=== PATIENT | female | born 1990 | race Caucasian/White ===

== ENCOUNTER 2016-12-02 13:03 | Emergency (ER) | payer OTHER ==
[~2016-12-02] VITALS: Ht 167.6 cm; Wt 68.3 kg
[~2016-12-02 13:03] MED LIST: ACETAMINOPHEN500 MG PO; AUGMENTIN875 MG PO; CIPRO500 M1 PO; ENDOCET 5-3251 EACH PO; IBUPROFEN800 MG PO; KEFLEX500 MG PO; LIDOCAINE20 MG/1 M5 PO; Levaquin PO; MOTRIN600 MG PO; MOTRIN800 MG PO; Macrobid PO; Motrin PO; NO; PEN-VEE K,VEET500 MG PO; PRENAPLUS TABL1 EACH PO; PRENATAL PLUS1 EAC3; PRENATAL TABLE1 EAC3 PO; PYRIDIUM200 MG PO; Percocet 5/325,Endoc PO; TRAMADOL HCL50 MG PO; ULTRAM50 MG PO
[2016-12-02 13:30] LABS: ADD MIUA? YES; BILIRUBIN NEGATIVE; BLOOD NEGATIVE; COLOR YELLOW ((YELLOW)); GLUCOSE (STRIP) NEGATIVE; KETONES NEGATIVE; LEUKOCYTES MODERATE; NITRITE NEGATIVE; PROTEIN (STRIP) 30; SPECIFIC GRAVITY 1.031 (1.000-1.030)
[2016-12-02 13:35] LABS: INTERNAL CONTROL VALID? YES
[2016-12-02 13:47] LABS: BACTERIA NONE SEEN /HPF; EPITHELIAL CELLS 1+ /HPF; MUCUS TRACE /LPF
[2016-12-02] MEDS ORDERED: PEN-VEE K,VEET500 MG PO (15:11)
[2016-12-02] MEDS ORDERED: ZOFRAN ODT4 MG PO (15:11)
[2016-12-02 15:53] VITALS: BP 144/94
== END 2016-12-02 15:54 | disposition home or self-care (01) ==
LOC: EXP 13:03 → EME 13:03 → EXP 15:54
PROVIDERS: Physician Assistant
DX: K02.9 Dental caries, unspecified (principal); K08.89 Other specified disorders of teeth and supporting structures; R51 Headache; F17.200 Nicotine dependence, unspecified, uncomplicated
CPT/HCPCS: 81003; 84703; 87086; 99281; 99284

== ENCOUNTER 2017-01-24 16:31 | Emergency (ER) | payer SELFPAY ==
[~2017-01-24] VITALS: Ht 172.7 cm; Wt 68.5 kg
[~2017-01-24 16:31] MED LIST changes: +ZOFRAN ODT4 MG PO
[2017-01-24] MEDS ORDERED: ERYTHROMYC1 APPLICAT LEFT EYE (20:11)
[2017-01-24 20:33] VITALS: BP 132/89
== END 2017-01-24 20:34 | disposition home or self-care (01) ==
LOC: EME 16:31
PROC: 3E0234Z Introduction of Serum, Toxoid and Vaccine into Muscle, Percutaneous Approach (ICD-10-PCS; principal; 2017-01-24)
DX: S05.02XA Injury of conjunctiva and corneal abrasion without foreign body, left eye, initial encounter (principal); W22.8XXA Striking against or struck by other objects, initial encounter; Z87.891 Personal history of nicotine dependence
CPT/HCPCS: 99281; 99284